=== PATIENT | male | born 1980 | race African-American/Black ===

== ENCOUNTER 2016-09-29 16:24 | Emergency (ER) | payer SELFPAY ==
[2016-09-29] MEDS ORDERED: Ketorolac 30 MG/ML SDV IVPUSH ONE (17:19)
[2016-09-29] MEDS ORDERED: Ondansetron 4 MG/2 ML SDV IVPUSH ONE (17:19)
[2016-09-29] MEDS ORDERED: Sodium Chloride 0.9% 1,000 ML IV ONE (17:19)
--- NOTE | 2016-09-29 17:22 | EDM.PDOC ---
ED HPI GENERAL MEDICAL PROBLEM - General Chief Complaint: Gastrointestinal Problem Stated Complaint: VOMITING Time Seen by Provider: 09/29/16 17:18 - History of Present Illness INITIAL COMMENTS - FREE TEXT/NARRATIVE: HISTORY AND PHYSICAL: History of present illness: Patient 36-year-old black male with no significant medical strictures with some abdominal pain times one day this is nonlocalized pain across his lower abdomen he's had nausea with associated vomiting has been no diarrhea no urinary symptoms no trauma no fever chills or other complaints Review of systems: As per history of present illness and below otherwise all systems reviewed and negative. Past medical history: As per history of present illness and as reviewed below otherwise noncontributory. Surgical history: As per history of present illness and as reviewed below otherwise noncontributory. Social history: No reported history of drug or alcohol abuse. Family history: As per history of present illness and as reviewed below otherwise noncontributory. Physical exam: HEENT: Atraumatic, normocephalic, pupils reactive, negative for conjunctival pallor or scleral icterus, mucous membranes moist, throat clear, neck supple, nontender, trachea midline. Lungs: Clear to auscultation, breath sounds equal bilaterally, chest nontender. Heart: S1S2, regular, negative for clicks, rubs, or JVD. Abdomen: Soft, nondistended, no localized tenderness no rebound no guarding. Negative for masses or hepatosplenomegaly. Negative for costovertebral tenderness. Pelvis: Stable nontender. Genitourinary: Deferred. Rectal: Deferred. Extremities: Atraumatic, negative for cords or calf pain. Neurovascular unremarkable. Neuro: Awake, alert, oriented. Cranial nerves II through XII unremarkable. Cerebellum unremarkable. Motor and sensory unremarkable throughout. Exam nonfocal. Diagnostics: CBC CMP lipase UA Therapeutics: Normal saline 1 L bolus Toradol 30 mg IV Zofran 4 mg IV Impression: #1 abdominal pain #2 vomiting Definitive disposition and diagnosis as appropriate pending reevaluation and review of above. Abdominal Pain Score (Numeric/FACES): 9 - Related Data Allergies Allergy/AdvReac Type Severity Reaction Status Date / Time No Known Allergies Allergy Verified 09/29/16 16:33 Home Meds: Home Meds . [No Known Home Meds] 09/29/16 [History] Past Medical History HEENT History: Reports: None Cardiovascular History: Reports: None Respiratory History: Reports: None Gastrointestinal History: Reports: None Genitourinary History: Reports: None Musculoskeletal History: Reports: None Neurological History: Reports: None Psychiatric History: Reports: None Endocrine/Metabolic History: Reports: None Hematologic History: Reports: None Immunologic History: Reports: None Oncologic (Cancer) History: Reports: None Dermatologic History: Reports: None - Past Surgical History Head Surgeries/Procedures: Reports: None Social & Family History - Family History Family Medical History: Noncontributory - Tobacco Use Smoking Status *Q: Never Smoker - Caffeine Use Caffeine Use: Reports: None - Recreational Drug Use Recreational Drug Use: No ED ROS GENERAL - Review of Systems Review Of Systems: ROS reveals no pertinent complaints other than HPI. ED EXAM, GENERAL - Physical Exam Exam: See Below (See dictation) Course - Vital Signs Last Recorded V/S: Last Vital Signs Temp 37.1 C 09/29/16 16:33 Pulse 71 09/29/16 16:33 Resp 16 09/29/16 16:33 BP 184/99 H 09/29/16 16:33 Pulse Ox 96 09/29/16 16:33 - Orders/Labs/Meds Labs: Laboratory Tests 09/29/16 09/29/16 09/29/16 Range/Units 17:25 17:25 17:40 WBC 6.77 (4.0-11.0) K/uL RBC 5.57 (4.50-5.90) M/uL Hgb 15.6 (13.0-17.0) g/dL Hct 44.7 (38.0-50.0) % MCV 80.3 (80.0-98.0) fL MCH 28.0 (27.0-32.0) pg MCHC 34.9 (31.0-37.0) g/dL RDW Std Deviation 39.6 (28.0-62.0) fl RDW Coeff of Elias 14 (11.0-15.0) % Plt Count 207 (150-400) K/uL MPV 8.70 (7.40-12.00) fL Neut % (Auto) 65.3 (48.0-80.0) % Lymph % (Auto) 27.3 (16.0-40.0) % Daniels % (Auto) 7.1 (0.0-15.0) % Eos % (Auto) 0.3 (0.0-7.0) % Baso % (Auto) 0.0 (0.0-1.5) % Neut # (Auto) 4.4 (1.4-5.7) K/uL Lymph # (Auto) 1.9 (0.6-2.4) K/uL Daniels # (Auto) 0.5 (0.0-0.8) K/uL Eos # (Auto) 0.0 (0.0-0.7) K/uL Baso # (Auto) 0.0 (0.0-0.1) K/uL Nucleated RBC % 0.0 /100WBC Nucleated RBCs # 0 K/uL Sodium 137 (136-146) mmol/L Potassium 3.9 (3.5-5.1) mmol/L Chloride 103 (98-110) mmol/L Carbon Dioxide 23 (21-31) mmol/L BUN 10 (6.0-23.0) mg/dL Creatinine 1.0 (0.6-1.5) mg/dL Est Cr Clr Drug Dosing 90.54 mL/min Estimated GFR (MDRD) > 60.0 ml/min Glucose 107 (60-110) mg/dL Calcium 9.3 (8.8-10.8) mg/dL Total Bilirubin 0.6 (0.1-1.5) mg/dL AST 27 (5-40) IU/L ALT 19 (8-54) IU/L Alkaline Phosphatase 49 (40-150) Total Protein 8.0 (6.0-8.0) g/dL Albumin 4.7 (3.5-5.0) g/dL Globulin 3.3 (2.0-3.5) g/dL Albumin/Globulin Ratio 1.4 (1.3-2.8) Lipase 76 (7-80) U/L Urine Color YELLOW Urine Appearance CLEAR Urine pH 6.5 (5.0-8.0) Ur Specific [place] 1.015 (1.001-1.035) Urine Protein NEGATIVE (NEGATIVE) mg/dL Urine Glucose (UA) NEGATIVE (NEGATIVE) mg/dL Urine Ketones NEGATIVE (NEGATIVE) mg/dL Urine Occult Blood NEGATIVE (NEGATIVE) Urine Nitrite NEGATIVE (NEGATIVE) Urine Bilirubin NEGATIVE (NEGATIVE) Urine Urobilinogen 0.2 (<2.0) EU/dL Ur Leukocyte Esterase NEGATIVE (NEGATIVE) Urine RBC 0-2 (0-2/HPF) Urine WBC 0-1 (0-5/HPF) Ur Epithelial Cells RARE (NONE-FEW) Urine Bacteria RARE (NEGATIVE) Meds: Medications Discontinued Medications Generic Name Dose Route Start Last Admin Trade Name Gely PRN Reason Stop Dose Admin Sodium Chloride 1,000 mls @ 999 mls/hr 09/29/16 17:19 09/29/16 18:13 Normal Saline IV 09/29/16 18:19 999 mls/hr STAT ONE Administration Ketorolac Tromethamine 30 mg 09/29/16 17:19 09/29/16 18:12 Toradol IVPUSH 09/29/16 17:20 30 mg ONETIME ONE Administration Ondansetron HCl 4 mg 09/29/16 17:19 09/29/16 18:12 Zofran IVPUSH 09/29/16 17:20 4 mg ONETIME ONE Administration Departure - Departure Time of Disposition: 18:27 Disposition: Home, Self-Care 01 Condition: good Clinical Impression: Abdominal pain - Discharge Information Referrals: PCP,None [Primary Care Provider] - Forms: ED Department Discharge Additional Instructions: The following information is given to patients seen in the emergency department who are being discharged to home. This information is to outline your options for follow-up care. We provide all patients seen in our emergency department with a follow-up referral. The need for follow-up, as well as the timing and circumstances, are variable depending upon the specifics of your emergency department visit. If you don't have a primary care physician on staff, we will provide you with a referral. We always advise you to contact your personal physician following an emergency department visit to inform them of the circumstance of the visit and for follow-up with them and/or the need for any referrals to a consulting specialist. The emergency department will also refer you to a specialist when appropriate. This referral assures that you have the opportunity for followup care with a specialist. All of these measure are taken in an effort to provide you with optimal care, which includes your followup. Under all circumstances we always encourage you to contact your private physician who remains a resource for coordinating your care. When calling for followup care, please make the office aware that this follow-up is from your recent emergency room visit. If for any reason you are refused follow-up, please contact the [facility] emergency department at and asked to speak to the emergency department charge nurse. [facility] [address] [place] [id number] Push fluids clear liquids as directed followup primary medical doctor in our clinic about 24-48 hours return as needed as discussed
[2016-09-29 17:56] LABS: CHLORIDE,CL 103 mmol/L (98-110); SODIUM,NA 137 mmol/L (136-146)
[2016-09-29 18:57] VITALS: BP 185/89
== END 2016-09-29 18:56 | disposition home or self-care (01) ==
LOC: MW.ED 16:29
DX: R10.9 Unspecified abdominal pain (principal); R11.10 Vomiting, unspecified
CPT/HCPCS: 36415; 80053; 81001; 83690; 85025; 96361; 96374; 96375; 99284; J1885; J2405; J7040

== ENCOUNTER 2016-09-30 11:27 | Observation (INO) | payer SELFPAY ==
[2016-09-30] MEDS ORDERED: Ketorolac 30 MG/ML SDV IVPUSH ONE (12:15)
[2016-09-30] MEDS ORDERED: Ondansetron 4 MG/2 ML SDV IVPUSH ONE (12:15)
[2016-09-30] MEDS ORDERED: Morphine 10 MG/ML Syringe IV ONE (12:15)
[2016-09-30] MEDS ORDERED: Sodium Chloride 0.9% 1,000 ML IV ONE (12:15)
[2016-09-30 13:20] LABS: CHLORIDE,CL 103 mmol/L (98-110); SODIUM,NA 135 mmol/L (136-146)
[2016-09-30] MEDS ORDERED: Prochlorperazine 10 MG/2 ML SDV IVPUSH ONE (13:52)
[2016-09-30] MEDS ORDERED: HYDROmorphone 2 MG/ML Syringe IVPUSH ONE (13:52)
--- NOTE | 2016-09-30 15:04 | EDM.PDOC ---
ED HPI GENERAL MEDICAL PROBLEM - General Chief Complaint: Abdominal Pain Stated Complaint: CHECK UP Time Seen by Provider: 09/30/16 12:15 Source of Information: Reports: Patient, Family History Limitations: Reports: No Limitations - History of Present Illness INITIAL COMMENTS - FREE TEXT/NARRATIVE: History of present illness: [36-year-old male comes in complaining of acute left lower quadrant pain. Patient was here yesterday and the pain improved somewhat but did not resolve and it has come back even worse now] Review of systems: As per history of present illness and below otherwise all systems reviewed and negative. Past medical history: As per history of present illness and as reviewed below otherwise noncontributory. Surgical history: As per history of present illness and as reviewed below otherwise noncontributory. Social history: No reported history of drug or alcohol abuse. Family history: As per history of present illness and as reviewed below otherwise noncontributory. Physical exam: HEENT: Atraumatic, normocephalic, pupils reactive, negative for conjunctival pallor or scleral icterus, mucous membranes moist, throat clear, neck supple, nontender, trachea midline. Lungs: Clear to auscultation, breath sounds equal bilaterally, chest nontender. Heart: S1S2, regular, negative for clicks, rubs, or JVD. Abdomen: Soft, exquisite tenderness to left lower quadrant, patient can barely tolerate palpation. Negative for masses or hepatosplenomegaly. Negative for costovertebral tenderness. Pelvis: Stable nontender. Genitourinary: Deferred. Rectal: Deferred. Extremities: Atraumatic, negative for cords or calf pain. Neurovascular unremarkable. Neuro: Awake, alert, oriented. Cranial nerves II through XII unremarkable. Cerebellum unremarkable. Motor and sensory unremarkable throughout. Exam nonfocal. Diagnostics: [CBC, CMP, CT of abdomen] Therapeutics: [Morphine, Toradol, IV fluid] Impression: [Ileus] Plan: [Admit for pain management ileus control Definitive disposition and diagnosis as appropriate pending reevaluation and review of above. Abdominal Pain Score (Numeric/FACES): 10 - Related Data Allergies Allergy/AdvReac Type Severity Reaction Status Date / Time No Known Allergies Allergy Verified 09/30/16 11:51 Home Meds: Home Meds . [No Known Home Meds] 09/29/16 [History] Past Medical History HEENT History: Reports: None Cardiovascular History: Reports: None Respiratory History: Reports: None Gastrointestinal History: Reports: None Genitourinary History: Reports: None Musculoskeletal History: Reports: None Neurological History: Reports: None Psychiatric History: Reports: None Endocrine/Metabolic History: Reports: None Hematologic History: Reports: None Immunologic History: Reports: None Oncologic (Cancer) History: Reports: None Dermatologic History: Reports: None - Past Surgical History Head Surgeries/Procedures: Reports: None Social & Family History - Family History Family Medical History: Noncontributory - Tobacco Use Smoking Status *Q: Never Smoker - Caffeine Use Caffeine Use: Reports: None - Recreational Drug Use Recreational Drug Use: No ED ROS GENERAL - Review of Systems Review Of Systems: See Below (History of present illness) ED EXAM, GI/ABD - Physical Exam Exam: See Below (See history of present illness) Course - Vital Signs Last Recorded V/S: Last Vital Signs Temp 36.6 C 09/30/16 11:47 Pulse 91 09/30/16 14:04 Resp 14 09/30/16 14:04 BP 163/93 H 09/30/16 14:04 Pulse Ox 98 09/30/16 14:04 - Orders/Labs/Meds Orders: Active Orders 24 hr Category Date Time Status Abdomen Pelvis wo Cont [CT] Stat Exams 09/30/16 12:15 Taken Labs: Laboratory Tests 09/30/16 09/30/16 Range/Units 12:31 12:31 WBC 5.72 (4.0-11.0) K/uL RBC 5.81 (4.50-5.90) M/uL Hgb 16.3 (13.0-17.0) g/dL Hct 46.2 (38.0-50.0) % MCV 79.5 L (80.0-98.0) fL MCH 28.1 (27.0-32.0) pg MCHC 35.3 (31.0-37.0) g/dL RDW Std Deviation 38.8 (28.0-62.0) fl RDW Coeff of Elias 14 (11.0-15.0) % Plt Count 221 (150-400) K/uL MPV 8.90 (7.40-12.00) fL Neut % (Auto) 57.0 (48.0-80.0) % Lymph % (Auto) 31.6 (16.0-40.0) % Richardson % (Auto) 11.0 (0.0-15.0) % Eos % (Auto) 0.2 (0.0-7.0) % Baso % (Auto) 0.2 (0.0-1.5) % Neut # (Auto) 3.3 (1.4-5.7) K/uL Lymph # (Auto) 1.8 (0.6-2.4) K/uL Richardson # (Auto) 0.6 (0.0-0.8) K/uL Eos # (Auto) 0.0 (0.0-0.7) K/uL Baso # (Auto) 0.0 (0.0-0.1) K/uL Nucleated RBC % 0.0 /100WBC Nucleated RBCs # 0 K/uL Sodium 135 L (136-146) mmol/L Potassium 4.0 (3.5-5.1) mmol/L Chloride 103 (98-110) mmol/L Carbon Dioxide 21 (21-31) mmol/L BUN 7 (6.0-23.0) mg/dL Creatinine 1.1 (0.6-1.5) mg/dL Est Cr Clr Drug Dosing 82.31 mL/min Estimated GFR (MDRD) > 60.0 ml/min Glucose 115 H (60-110) mg/dL Calcium 9.6 (8.8-10.8) mg/dL Total Bilirubin 0.8 (0.1-1.5) mg/dL AST 27 (5-40) IU/L ALT 19 (8-54) IU/L Alkaline Phosphatase 50 (40-150) Total Protein 8.2 H (6.0-8.0) g/dL Albumin 4.8 (3.5-5.0) g/dL Globulin 3.4 (2.0-3.5) g/dL Albumin/Globulin Ratio 1.4 (1.3-2.8) Meds: Medications Discontinued Medications Generic Name Dose Route Start Last Admin Trade Name Freq PRN Reason Stop Dose Admin Hydromorphone HCl 2 mg 09/30/16 13:52 09/30/16 13:58 Dilaudid IVPUSH 09/30/16 13:53 2 mg ONETIME ONE Administration Sodium Chloride 1,000 mls @ 999 mls/hr 09/30/16 12:15 09/30/16 12:41 Normal Saline IV 09/30/16 13:15 999 mls/hr STAT ONE Administration Ketorolac Tromethamine 30 mg 09/30/16 12:15 09/30/16 12:42 Toradol IVPUSH 09/30/16 12:16 30 mg ONETIME ONE Administration Morphine Sulfate 4 mg 09/30/16 12:15 09/30/16 12:43 Morphine IV 09/30/16 12:16 4 mg ONETIME ONE Administration Ondansetron HCl 8 mg 09/30/16 12:15 09/30/16 12:35 Zofran IVPUSH 09/30/16 12:16 8 mg ONETIME ONE Administration Prochlorperazine Edisylate 10 mg 09/30/16 13:52 09/30/16 14:01 Compazine IVPUSH 09/30/16 13:53 10 mg ONETIME ONE Administration Departure - Departure Time of Disposition: 15:04 Disposition: Admitted As Inpatient 68 Condition: good Clinical Impression: Abdominal pain - Discharge Information Forms: ED Department Discharge - My Orders Last 24 Hours: My Active Orders 09/30/16 12:15 Abdomen Pelvis wo Cont [CT] Stat - Assessment/Plan Last 24 Hours: My Active Orders 09/30/16 12:15 Abdomen Pelvis wo Cont [CT] Stat
--- NOTE | 2016-09-30 15:10 | CT ---
EXAM DATE: 09/30/16 PATIENT'S AGE: 36 Patient: JASON CAZARES Facility: [place], [place] Site . Site : 1980 Study: CT Abdomen/Pelvis [id number]/2/2017 1:12:53 PM Ordering Physician: Doctor Lambert Final Report: INDICATION: Left lower quadrant pain x3 days. TECHNIQUE: CT abdomen and pelvis acquired without contrast. COMPARISON: None. FINDINGS: Lower chest: Unremarkable. . Liver: Calcified granuloma. . Spleen: Unremarkable. . Pancreas: Unremarkable. . Gallbladder and bile ducts: Unremarkable. . Kidneys: Unremarkable. . Adrenal glands: Unremarkable. . GI tract: Focal mildly dilated small bowel loop in the left lower quadrant. No high-grade bowel obstruction. No focal bowel wall thickening is evident. The appendix is normal in appearance. No free air or free fluid. . Vascular structures: Unremarkable. . Lymph nodes: Unremarkable. . Pelvic Organs: Unremarkable. . Bones: No acute abnormality. IMPRESSION: Focal mildly dilated small bowel loop in the left lower quadrant. This may be of no significance, however, given the history of left lower quadrant pain, focal ileus or a mild nonspecific enteritis are considerations. Otherwise, no acute intra-abdominal or pelvic abnormality. Dictated by Carlos Westbrook MD @ 09/30/2016 1:24:43 PM Dictated by: Carlos Westbrook MD @ 09/30/2016 13:24:56 (Electronic Signature) Report Signed by Proxy. ANGÉLICA
[2016-09-30] MEDS ORDERED: Ondansetron 4 MG/2 ML SDV IVPUSH PRN (15:54)
[2016-09-30] MEDS ORDERED: Sodium Chloride 0.9% 2.5 ML Syringe FLUSH PRN (15:54)
--- NOTE | 2016-09-30 15:54 | PCM.HP ---
H&P History of Present Illness - General Date of Service: 09/30/16 Admit Problem/Dx: Ileus Source of Information: Patient, Family ( at bedside) History Limitations: Reports: No Limitations - History of Present Illness Initial Comments - Free Text/Narative: This 36 year old AA male with no significant pmh presented to the ED today with 3 day history of abdominal pain. He reports this pain started 3 days ago while he was working. It is sharp stabbing pain, "like something is cutting me on the inside." He reports having some chills and sweats, but unknown if fever present. Pain is located to left lower abdomen, he has not had a stool in 3 days , he normally has regular daily BM. He denies have black or bloody stools, no bloody or coffee ground emesis. He was seen in [facility] ED yesterday and discharged home. He tried CL diet, but has not been able to keep anything down. Movement tends to worsen pain and resting still improves the pain. He denies any chest pain, SOB recent illness. No recent travel or questionable foods. In the ED labwork WNL. Ct of abdomen reported "focal mildly ilated small bowel loop in [facility] left lower quadrant, focal ileus or a mild non-specific enteritis, otherwise no acute intra-abdominal or pelvic abnormality". He will be admitted for ileus. Abdominal Pain Score (Numeric/FACES): 6 - Related Data Allergies/Adverse Reactions: Allergies Allergy/AdvReac Type Severity Reaction Status Date / Time No Known Allergies Allergy Verified 09/30/16 11:51 Home Medications: Home Meds . [No Known Home Meds] 09/29/16 [History] Past Medical History HEENT History: Reports: None Cardiovascular History: Reports: None. Denies: Blood Clots/VTE/DVT, CAD, High Cholesterol, Hypertension, NE Respiratory History: Reports: None. Denies: Asthma, COPD, PE Gastrointestinal History: Reports: None. Denies: Inflammatory Bowel Disease Genitourinary History: Reports: None Musculoskeletal History: Reports: None Neurological History: Reports: None. Denies: CVA, TIA Psychiatric History: Reports: None Endocrine/Metabolic History: Reports: None. Denies: Diabetes, Type II, Hypothyroidism Hematologic History: Reports: None Immunologic History: Reports: None Oncologic (Cancer) History: Reports: None Dermatologic History: Reports: None - Past Surgical History Head Surgeries/Procedures: Reports: None Social & Family History - Family History Family Medical History: Noncontributory - Tobacco Use Smoking Status *Q: Never Smoker - Caffeine Use Caffeine Use: Reports: None - Alcohol Use Alcohol Use History: No Alcohol Use Frequency: Socially - Recreational Drug Use Recreational Drug Use: No - Living Situation & Occupation Living situation: Reports: Occupation: Employed H&P Review of Systems - Review of Systems: Review Of Systems: See Below General: Reports: Chills, Decreased Appetite HEENT: Reports: No Symptoms. Denies: Ear Pain, Post Nasal Drip, Sinus Congestion, Vertigo, Visual Changes Pulmonary: Reports: No Symptoms. Denies: Shortness of Breath, Cough, Sputum Cardiovascular: Reports: No Symptoms. Denies: Chest Pain, Edema Gastrointestinal: Reports: Abdominal Pain (LLQ), Decreased Appetite, Distension , Flatus, Nausea, Vomiting. Denies: Black Stool, Bloody Stool, Hematemesis Genitourinary: Reports: No Symptoms. Denies: Dysuria, Frequency, Burning Musculoskeletal: Reports: No Symptoms Skin: Reports: No Symptoms Neurological: Reports: No Symptoms Hematologic/Lymphatic: Reports: No Symptoms Immunologic: Reports: No Symptoms Exam - Exam Exam: See Below - Vital Signs Vital Signs: Last Vital Signs Temp 97.8 F 09/30/16 11:47 Pulse 75 09/30/16 15:01 Resp 16 09/30/16 15:01 BP 166/92 H 09/30/16 15:01 Pulse Ox 95 09/30/16 15:01 Weight: 73.1 kg - Exam Quality Assessment: DVT Prophylaxis General: Alert, Oriented, Cooperative HEENT: Conjunctiva Clear, Nares Patent, Posterior Pharynx Clear. No: Mucosa Moist & [place] (dry muscous membranes) Neck: Supple, Trachea Midline, 2 Lungs: Clear to Auscultation, Normal Respiratory Effort Cardiovascular: Regular Rate, Regular Rhythm Abdomen: Normal Bowel Sounds, Soft, Distention, Tenderness (diffuse, mostly located to LLQ). No: Organomegaly, Peritoneal Signs, Guarding, Rigidity Back Exam: Normal Inspection, Full Range of Motion Extremities: Normal Inspection Neurological: Cranial Nerves Intact Neuro Extensive - Mental Status: Alert, Oriented x3, Normal Mood/Affect, Normal Cognition Neuro Extensive - Motor, Sensory, Reflexes: CN II-XII Intact Psychiatric: Alert, Normal Affect, Normal Mood - Patient Data Result Diagrams: 09/30/16 12:31 09/30/16 12:31 *Q Meaningful Use (ADM) - VTE *Q VTE Criteria *Q: - VTE Risk Assess *Q Each Risk Factor Represents 1 Point: None Total Score 1 Point Risk Factors: 0 Each Risk Factor Represents 2 Points: None Total Score 2 Point Risk Factors: 0 Each Risk Factor Represents 3 Points: None Total Score 3 Point Risk Factors: 0 Each Risk Factor Represents 5 Points: None Total Score 5 Point Risk Factors: 0 Venous Thromboembolism Risk Factor Score *Q: 0 - Stroke *Q Stroke Criteria *Q: - AMI *Q AMI Criteria *Q: - Problem List (1) Ileus SNOMED Code(s): 067861509 ICD Code: K56.7 - ILEUS, UNSPECIFIED Status: Acute Current Visit: Yes (2) Abdominal pain SNOMED Code(s): 41604521 ICD Code: R10.9 - UNSPECIFIED ABDOMINAL PAIN Status: Acute Current Visit : No Problem List Initiated/Reviewed/Updated: Yes Assessment/Plan Comment:: This 36 year old male admitted with abdominal pain and ileus 1. Ileus: Will place on bowel rest, IVFs, analgesia and anti-emetics PRN. Repeat abdominal xray in am to evaluate ileus. Encouraged to be up ambulating. VTE prophylaxis: SCDs Dispo: 1-2 days pending improvement.
[2016-09-30] MEDS: Sodium Chloride 0.9% 1,000 ML IV SCH (16:55)
[2016-09-30] MEDS: Pantoprazole 40 MG in Sodium Chloride 0.9% 10 ML IVPUSH SCH (17:41)
[2016-09-30] MEDS: Morphine 4 MG/ML Syringe IVPUSH PRN (21:49)
[2016-10-01] MEDS: Morphine 4 MG/ML Syringe IVPUSH PRN ×11 (00:14→23:13)
[2016-10-01] MEDS: Sodium Chloride 0.9% 1,000 ML IV SCH ×4 (00:17→23:07)
[2016-10-01 06:32] LABS: CHLORIDE,CL 107 mmol/L (98-110); SODIUM,NA 137 mmol/L (136-146)
[2016-10-01] MEDS: Pantoprazole 40 MG in Sodium Chloride 0.9% 10 ML IVPUSH SCH (09:00)
--- NOTE | 2016-10-01 15:42 | PCM.PN ---
- General Info Date of Service: 10/01/16 Admission Dx/Problem (Free Text): Ileus Subjective Update: the patient is doing better today, n.p.o. Functional Status: Reports: pain controlled. Denies: tolerating diet - Review of Systems General: Reports: No Symptoms HEENT: Reports: no symptoms Pulmonary: Reports: no symptoms Cardiovascular: Reports: No Symptoms Gastrointestinal: Reports: Abdominal pain. Denies: Flatus Genitourinary: Reports: no symptoms Musculoskeletal: Reports: no symptoms Skin: Reports: no symptoms Neurological: Reports: No Symptoms Psychiatric: Reports: no symptoms - Patient Data Vitals - most recent: Last Vital Signs Temp 37.2 C 10/01/16 12:00 Pulse 65 10/01/16 12:00 Resp 16 10/01/16 12:00 BP 165/104 H 10/01/16 12:00 Pulse Ox 97 10/01/16 12:00 Weight - most recent: 73.1 kg I&O - last 24 hours: Intake & Output 10/01/16 10/01/16 10/01/16 06:59 14:59 22:59 Intake Total 1510 Output Total 1550 Balance -40 Lab Results last 24 hrs: Laboratory Results - last 24 hr 10/01/16 10/01/16 Range/Units 05:35 05:35 WBC 4.98 (4.0-11.0) K/uL RBC 5.34 (4.50-5.90) M/uL Hgb 14.9 (13.0-17.0) g/dL Hct 43.2 (38.0-50.0) % MCV 80.9 (80.0-98.0) fL MCH 27.9 (27.0-32.0) pg MCHC 34.5 (31.0-37.0) g/dL RDW Std Deviation 39.7 (28.0-62.0) fl RDW Coeff of Elias 13 (11.0-15.0) % Plt Count 194 (150-400) K/uL MPV 8.80 (7.40-12.00) fL Neut % (Auto) 50.9 (48.0-80.0) % Lymph % (Auto) 35.7 (16.0-40.0) % Early % (Auto) 12.4 (0.0-15.0) % Eos % (Auto) 0.8 (0.0-7.0) % Baso % (Auto) 0.2 (0.0-1.5) % Neut # (Auto) 2.5 (1.4-5.7) K/uL Lymph # (Auto) 1.8 (0.6-2.4) K/uL Early # (Auto) 0.6 (0.0-0.8) K/uL Eos # (Auto) 0.0 (0.0-0.7) K/uL Baso # (Auto) 0.0 (0.0-0.1) K/uL Nucleated RBC % 0.0 /100WBC Nucleated RBCs # 0 K/uL Sodium 137 (136-146) mmol/L Potassium 4.0 (3.5-5.1) mmol/L Chloride 107 (98-110) mmol/L Carbon Dioxide 23 (21-31) mmol/L BUN 8 (6.0-23.0) mg/dL Creatinine 1.0 (0.6-1.5) mg/dL Est Cr Clr Drug Dosing 90.41 mL/min Estimated GFR (MDRD) > 60.0 ml/min Glucose 100 (60-110) mg/dL Calcium 8.7 L (8.8-10.8) mg/dL Med Orders - Current: Current Medications Sodium Chloride (Normal Saline) 1,000 mls @ 125 mls/hr IV ASDIRECTED [facility] Last Admin: 10/01/16 15:25 Dose: 125 mls/hr Pantoprazole Sodium 40 mg/ (Sodium Chloride) 10 mls @ 300 mls/hr IVPUSH DAILY [facility] Last Admin: 10/01/16 09:00 Dose: 300 mls/hr Lisinopril (Prinivil) 5 mg PO DAILY [facility] Morphine Sulfate (Morphine) 3 mg IVPUSH Q2H PRN PRN Reason: Pain (severe 7-10) Last Admin: 10/01/16 14:12 Dose: 3 mg Ondansetron HCl (Zofran) 4 mg IVPUSH Q4H PRN PRN Reason: Nausea Last Admin: 09/30/16 21:49 Dose: 4 mg Sodium Chloride (Saline Flush) 2.5 ml FLUSH ASDIRECTED PRN PRN Reason: Keep Vein Open Discontinued Medications Hydromorphone HCl (Dilaudid) 2 mg IVPUSH ONETIME ONE Stop: 09/30/16 13:53 Last Admin: 09/30/16 13:58 Dose: 2 mg Sodium Chloride (Normal Saline) 1,000 mls @ 999 mls/hr IV STAT ONE Stop: 09/30/16 13:15 Last Admin: 09/30/16 12:41 Dose: 999 mls/hr Ketorolac Tromethamine (Toradol) 30 mg IVPUSH ONETIME ONE Stop: 09/30/16 12:16 Last Admin: 09/30/16 12:42 Dose: 30 mg Morphine Sulfate (Morphine) 4 mg IV ONETIME ONE Stop: 09/30/16 12:16 Last Admin: 09/30/16 12:43 Dose: 4 mg Ondansetron HCl (Zofran) 8 mg IVPUSH ONETIME ONE Stop: 09/30/16 12:16 Last Admin: 09/30/16 12:35 Dose: 8 mg Prochlorperazine Edisylate (Compazine) 10 mg IVPUSH ONETIME ONE Stop: 09/30/16 13:53 Last Admin: 09/30/16 14:01 Dose: 10 mg - Exam Quality Assessment: No: supplemental oxygen General: alert, oriented, cooperative, no acute distress HEENT: Pupils equal, Pupils reactive Neck: supple, trachea midline Lungs: Clear to auscultation, Normal respiratory effort Cardiovascular: Regular Rate, Regular Rhythm Abdomen: bowel sounds present, soft, no distension, tenderness. No: rebound, guarding Back Exam: Normal Inspection Extremities: no edema Skin: warm, dry, intact Neurological: no new focal deficit Psy/Mental Status: alert, normal affect, normal mood - Problem List & Annotations (1) Ileus SNOMED Code(s): 754056090 Code(s): K56.7 - ILEUS, UNSPECIFIED Status: Acute Priority: High Current Visit: Yes (2) Abdominal pain SNOMED Code(s): 36749726 Code(s): R10.9 - UNSPECIFIED ABDOMINAL PAIN Status: Acute Priority: High Current Visit: Yes - Problem List Review Problem List Initiated/Reviewed/Updated: Yes - My Orders Last 24 Hours: My Active Orders 09/30/16 17:30 Pantoprazole [ProTONIX IV] 40 mg Sodium Chloride 0.9% [Normal Saline] 10 ml IVPUSH DAILY 10/01/16 11:58 Abdomen 1V Flat [CR] Routine 10/01/16 15:45 Lisinopril [Prinivil] 5 mg PO DAILY - Plan Plan:: This 36 year old male admitted with abdominal pain and ileus 1. Ileus: Will place on bowel rest, IVFs, analgesia and anti-emetics PRN. Repeat abdominal xray in am to evaluate ileus. Encouraged to be up ambulating. VTE prophylaxis: SCDs Dispo: 1-2 days pending improvement. Oct 01, 2016: The patient is a 36-year-old gentleman who is presented to the emergency department yesterday with a three-day history of abdominal pain. Patient reports it started while he was working and had described as sharp and stabbing. The day of admission the patient was noted to have an ileus and constipation. The patient had denied black or tarry stools. The patient today says that his pain is well-controlled. He feels better. The patient also says that he has not had a bowel movement or passed flatus. CT of the abdomen had reported that there was a mildly dilated small bowel loop in the left lower quadrant. This is concern for focal ileus or mild nonspecific enteritis. The patient has been kept n.p.o. He is also been fluid resuscitated with normal saline at 125 mL per hour. The patient should be appropriate for discharge once his diet is advanced as tolerated and his pain is well-controlled and his previously noted ileus has been resolved. The patient has been encouraged for ambulation. He'll be kept n.p.o. until either bowel movements or flatus and his diet will be advanced as tolerated.
[2016-10-01] MEDS: Lisinopril 5 MG Tab PO SCH (16:20)
[2016-10-02] MEDS: Morphine 4 MG/ML Syringe IVPUSH PRN ×2 (03:32→07:13)
[2016-10-02 06:19] LABS: CHLORIDE,CL 106 mmol/L (98-110); SODIUM,NA 139 mmol/L (136-146)
[2016-10-02] MEDS: Sodium Chloride 0.9% 1,000 ML IV SCH (07:08)
[2016-10-02 08:11] VITALS: BP 129/70
[2016-10-02] MEDS: Pantoprazole 40 MG in Sodium Chloride 0.9% 10 ML IVPUSH SCH (09:04)
[2016-10-02] MEDS: Lisinopril 5 MG Tab PO SCH (09:04)
--- NOTE | 2016-10-02 09:39 | PCM.DCSUM1 ---
Discharge Summary - Hospital Course Free Text/Narrative:: the patient was admitted for observation secondary to intractable abdominal pain and radiographic evidence of ileus versus enteritis. - Discharge Data Discharge Date: 10/02/16 Discharge Disposition: Home, Self-Care 01 Condition: Good - Discharge Diagnosis/Problem(s) (1) Ileus SNOMED Code(s): 748998196 ICD Code: K56.7 - ILEUS, UNSPECIFIED Status: Resolved Priority: High Current Visit: Yes (2) Abdominal pain SNOMED Code(s): 23768362 ICD Code: R10.9 - UNSPECIFIED ABDOMINAL PAIN Status: Resolved Priority: High Current Visit: Yes - Patient Summary/Data Hospital Course: Oct 02, 2016: The patient is a 36-year-old gentleman who presented to the emergency department 2 times on Sep 30, 2016. The patient had radiographic evidence of an ileus versus enteritis and he was subsequently admitted. The patient was treated conservatively n.p.o., fluid support, pain control and bowel rest. The patient also had been encouraged to ambulate. Abdominal x-ray taken day before discharge had shown nonspecific bowel gas pattern. By day of discharge the patient reports that his abdominal pain is completely resolved. The patient has denied any nausea or vomiting and he also has had a bowel movement. Patient is an otherwise healthy gentleman who has been recommended to continue with diet as tolerated and activity as tolerated. He is to followup with his primary care physician posthospitalization. Patient's vital signs are stable and he is appropriate for discharge with the above recommendations. - Patient Instructions Diet: Usual Diet as Tolerated Activity: As Tolerated Showering/Bathing: May Shower - Discharge Plan Home Medications: Home Meds . [No Known Home Meds] 09/29/16 [History] Forms: ED Department Discharge Referrals: PCP,None [Primary Care Provider] - - Discharge Summary/Plan Comment DC Time >30 min.: Yes - Patient Data Vitals - Most Recent: Last Vital Signs Temp 37.0 C 10/02/16 08:00 Pulse 61 10/02/16 08:00 Resp 20 10/02/16 08:00 BP 129/70 10/02/16 09:04 Pulse Ox 96 10/02/16 08:00 Weight - Most Recent: 73.1 kg I&O - Last 24 hours: Intake & Output 10/01/16 10/02/16 10/02/16 22:59 06:59 14:59 Intake Total 240 1564 Output Total 677 1250 Balance -435 314 Lab Results - Last 24 hrs: Laboratory Results - last 24 hr 10/02/16 10/02/16 Range/Units 05:48 05:48 WBC 5.35 (4.0-11.0) K/uL RBC 5.00 (4.50-5.90) M/uL Hgb 13.8 (13.0-17.0) g/dL Hct 40.2 (38.0-50.0) % MCV 80.4 (80.0-98.0) fL MCH 27.6 (27.0-32.0) pg MCHC 34.3 (31.0-37.0) g/dL RDW Std Deviation 38.5 (28.0-62.0) fl RDW Coeff of Elias 13 (11.0-15.0) % Plt Count 178 (150-400) K/uL MPV 8.60 (7.40-12.00) fL Neut % (Auto) 60.4 (48.0-80.0) % Lymph % (Auto) 23.9 (16.0-40.0) % Dawson % (Auto) 14.8 (0.0-15.0) % Eos % (Auto) 0.7 (0.0-7.0) % Baso % (Auto) 0.2 (0.0-1.5) % Neut # (Auto) 3.2 (1.4-5.7) K/uL Lymph # (Auto) 1.3 (0.6-2.4) K/uL Dawson # (Auto) 0.8 (0.0-0.8) K/uL Eos # (Auto) 0.0 (0.0-0.7) K/uL Baso # (Auto) 0.0 (0.0-0.1) K/uL Nucleated RBC % 0.0 /100WBC Nucleated RBCs # 0 K/uL Sodium 139 (136-146) mmol/L Potassium 4.0 (3.5-5.1) mmol/L Chloride 106 (98-110) mmol/L Carbon Dioxide 24 (21-31) mmol/L BUN 13 (6.0-23.0) mg/dL Creatinine 1.1 (0.6-1.5) mg/dL Est Cr Clr Drug Dosing 82.19 mL/min Estimated GFR (MDRD) > 60.0 ml/min Glucose 82 (60-110) mg/dL Calcium 8.8 (8.8-10.8) mg/dL Med Orders - Current: Current Medications Sodium Chloride (Normal Saline) 1,000 mls @ 125 mls/hr IV ASDIRECTED [facility] Last Admin: 10/02/16 07:08 Dose: 125 mls/hr Pantoprazole Sodium 40 mg/ (Sodium Chloride) 10 mls @ 300 mls/hr IVPUSH DAILY [facility] Last Admin: 10/02/16 09:04 Dose: 300 mls/hr Lisinopril (Prinivil) 5 mg PO DAILY [facility] Last Admin: 10/02/16 09:04 Dose: 5 mg Morphine Sulfate (Morphine) 3 mg IVPUSH Q2H PRN PRN Reason: Pain (severe 7-10) Last Admin: 10/02/16 07:13 Dose: 3 mg Ondansetron HCl (Zofran) 4 mg IVPUSH Q4H PRN PRN Reason: Nausea Last Admin: 09/30/16 21:49 Dose: 4 mg Sodium Chloride (Saline Flush) 2.5 ml FLUSH ASDIRECTED PRN PRN Reason: Keep Vein Open Discontinued Medications Hydromorphone HCl (Dilaudid) 2 mg IVPUSH ONETIME ONE Stop: 09/30/16 13:53 Last Admin: 09/30/16 13:58 Dose: 2 mg Sodium Chloride (Normal Saline) 1,000 mls @ 999 mls/hr IV STAT ONE Stop: 09/30/16 13:15 Last Admin: 09/30/16 12:41 Dose: 999 mls/hr Ketorolac Tromethamine (Toradol) 30 mg IVPUSH ONETIME ONE Stop: 09/30/16 12:16 Last Admin: 09/30/16 12:42 Dose: 30 mg Morphine Sulfate (Morphine) 4 mg IV ONETIME ONE Stop: 09/30/16 12:16 Last Admin: 09/30/16 12:43 Dose: 4 mg Ondansetron HCl (Zofran) 8 mg IVPUSH ONETIME ONE Stop: 09/30/16 12:16 Last Admin: 06/02/17 12:35 Dose: 8 mg Prochlorperazine Edisylate (Compazine) 10 mg IVPUSH ONETIME ONE Stop: 09/30/16 13:53 Last Admin: 09/30/16 14:01 Dose: 10 mg *Q Meaningful Use (DIS) - VTE *Q VTE Criteria *Q: - Stroke *Q Stroke Criteria *Q: - AMI *Q AMI Criteria *Q:
--- NOTE | 2016-10-03 13:30 | CR ---
EXAM DATE: 09/30/16 PATIENT'S AGE: 36 Patient: JASON CAZARES Facility: [place], [place] Site . Site : 1980 Study: XRay Abdomen [id number]/3/2017 7:39:20 AM Ordering Physician: Nicolle Younger Final Report: INDICATION: Follow up ileus. Comparison : CT September 30, 2016. TECHNIQUE: Two view abdomen. FINDINGS: The bowel gas pattern appears normal. There is no evidence of free intraperitoneal air or soft tissue mass effect. There are no pathologic calcifications. IMPRESSION: Negative abdomen. No significant change. Dictated by Nikita Cuenca MD @ Oct 01 2016 7:51AM (Electronic Signature) Report Signed by Proxy. ANGÉLICA
--- NOTE | 2016-10-03 14:31 | CR ---
EXAM DATE: 09/30/16 PATIENT'S AGE: 36 Patient: JASON CAZARES Facility: [place], [place] Site . Site : 1980 Study: XRay Abdomen [id number]/3/2017 12:44:57 PM Ordering Physician: Nicolle Younger Final Report: Indication: Possible small bowel obstruction. Comparison: AP abdomen 10/01/2016 performed at 7:20 a.m. Findings: Allowing for differences in technique, the bowel gas pattern remains unchanged. Impression: No evidence of bowel obstruction on portable abdomen. Dictated by Stefania Ponce MD @ Oct 01 2016 1:05PM (Electronic Signature) Report Signed by Proxy. ANGÉLICA
== END 2016-10-02 10:05 | disposition home or self-care (01) ==
LOC: MW.ED 11:27 → MW.MS 15:20
PROVIDERS: ADMIT Internal Medicine; ATTEND Internal Medicine
DX: K56.7 Ileus, unspecified (principal); R10.9 Unspecified abdominal pain
CPT/HCPCS: 36415; 74000; 74020; 74176; 80048; 80053; 85025; 96361; 96374; 96375; 99285; A9270; C9113; J0780; J1170; J1885; J2270; J2405; J7040; 96376; G0378